=== PATIENT | male | born 1950 | race Caucasian/White ===

== ENCOUNTER 2022-10-21 06:20 | Day surgery (SDC) | payer MEDICARE, BC ==
[~2022-10-21] VITALS: Ht 172.7 cm; Wt 75.0 kg
[~2022-10-21 06:20] MED LIST: LATANOPROST2.5 ML OPTH; LEVOTHYROXINE50 MCG PO; LOVENOX40 MG SUB-Q; LOVENOX40 MG/0.4 SUB-Q; LOVENOX80 MG SUB-Q; MAPAP325 MG PO; OXYCODON-ACETA1 EAC2 PO; PERCOCET 7.5-31 EACH PO; SILDENAFIL20 MG PO; WARFARIN SODIUM5 MG PO
--- NOTE | 2022-10-21 08:59 | NUR ---
10/21/22 0859 Alva Gu 0806 PT ARRIVED IN PACU SLEEPY WITH NO C/O'S. ABD SOFT. 0820 DR AT BEDSIDE. ALL QUESTIONS ANSWERED. 0830 SITTING AT BEDSIDE SIPPING ON WATER. DC INSTRUCTIONS GIVEN. 0846 LEFT VIA W/C.
--- NOTE | 2022-10-21 09:40 | NUR ---
PT ALERT,ORIENTED AND SUPPORTED BY HIS MO. PT HAS HAD PREVIOUS SCOPES, ALL QUESTIONS ASKED ANSWERED. MO WILL REMAIN FOR DC-GAVE BLESSING ANSD WILL FOLLOW.
--- NOTE | 2022-10-22 08:57 | OR ---
[facility] [address] [place], [place] [address] Signed DATE OF OPERATION: 10/21/2022 SURGEON: Lauryn Rodrigues MD PREOPERATIVE DIAGNOSIS: History of sigmoid resection for colon cancer in 2011. POSTOPERATIVE DIAGNOSIS: Normal colon to cecum except for mild inflammation of the ileocecal valve. PROCEDURE: Total colonoscopy to cecum with biopsy of ileocecal valve. ANESTHESIA: Intravenous sedation, fentanyl 100 mcg and Versed 4 mg. INDICATIONS: This 72-year-old white man is a patient of Dave Adrian. He underwent sigmoid resection by ga for colon cancer in 2011. He did suffer a postoperative DVT and pulmonary embolism after a few weeks postop and has been anticoagulated with Coumadin since that time. He is on Lovenox therapy as a bridge during the course of surveillance colonoscopy. He currently has no symptoms of bleeding, diarrhea, or constipation. He understands the risk of colonoscopy including but not limited to bleeding, infection, and perforation and wished to proceed. FINDINGS: The prep was excellent. Complete colonoscopy was undertaken to the cecum. There was inflammation of the ileocecal valve, but no sign of malignancy. Biopsy was obtained nevertheless. Remaining colon was normal including the colorectal anastomosis, which was widely patent. DESCRIPTION OF PROCEDURE: The patient was brought to the endoscopy suite and placed in lateral decubitus position given intravenous sedation to the point of slurred speech and nystagmus. Digital rectal examination was normal. An Olympus video colonoscope was passed into the rectum and manipulated throughout the colon ultimately intubating the cecum. The ileocecal valve appeared to have inflammation. Manipulation of it was undertaken and although the inflammation was not associated with neoplastic change, biopsies were obtained. The scope was then Electronically Signed By: LAURYN RODRIGUES MD 10/22/22 0857 PATIENT NAME: EFRAÍN YOUNGER OPERATIVE REPORT DATE OF : 48 REPORT #: [id number] PHYSICIAN: LAURYN RODRIGUES MD PCP: DAVE ADRIAN PAC REPORT IS CONFIDENTIAL AND NOT TO BE RELEASED WITHOUT AUTHORIZATION [facility] [address], [place] [address] Signed withdrawn. Examination throughout showed no other abnormality, specifically no polyps, diverticular formation, colitis, or cancer. The colorectal anastomosis was widely patent. Retroflexed view of the rectum was normal. Scope was removed. The patient was taken to the recovery room in good condition. CONCLUDING DIAGNOSIS: Essentially normal colon. Inflammation of ileocecal valve nonspecific. Biopsy results pending. PLAN: We would recommend repeat colonoscopy in 5 years or sooner if symptoms should occur. He will restart his Coumadin now and complete Lovenox bridge therapy as previously ordered. He will return to the ongoing care of Dave Adrian PA-C. MD REMI Bowen/DAKOTAL /[id number] cc: Dave Adrian PA-C Copies: ~ Electronically Signed By: LAURYN RODRIGUES MD 10/22/22 0857 PATIENT NAME: EFRAÍN YOUNGER OPERATIVE REPORT DATE OF : 48 REPORT #: [id number] PHYSICIAN: LAURYN RODRIGUES MD PCP: DAVE ADRIAN PAC REPORT IS CONFIDENTIAL AND NOT TO BE RELEASED WITHOUT AUTHORIZATION
--- NOTE | 2022-10-22 18:11 | PATH ---
[facility] [address] [place], [place] [address] Signed SPECIMEN(S): A ILEOCECAL VALVE BIOPSY SPECIMEN SOURCE: A. ILEOCECAL VALVE BIOPSY CLINICAL HISTORY: Pre: 2011 low anterior resection. 2014 normal colonoscopy. FINAL PATHOLOGIC DIAGNOSIS: Ileocecal valve, biopsies: - Benign small intestinal mucosa. - Negative for acute inflammation, granulomata, and dysplasia. DF:ricardoc:C2NR MICROSCOPIC EXAMINATION: Histologic sections of all submitted blocks are examined by light microscopy. These findings, together with the gross examination, support the pathologic diagnosis. GROSS DESCRIPTION: The specimen, labeled and designated "Slime, ileocecal valve biopsy," is received in formalin and consists of two zhu, soft tissue fragments ranging from 0.1 to 0.2 cm. Entirely submitted in (A1). VB (under the direct supervision of a pathologist) The Gross Description was prepared using a voice recognition system. The report was reviewed for accuracy; however, sound-alike word errors, addition and/or deletions may occur. If there is any question about this report, please contact Client Services. PERFORMING LABORATORY: The technical component was performed by [email or web address], [address] [place] [id number] (CLIA# [id number]). The professional interpretation was performed by [facility], [facility], [address] [place] [id number] (CLIA#: [id number]). Diagnostician: Anjum Michaud DO Pathologist Electronically Signed 10/22/2022 PATIENT NAME: EFRAÍN YOUNGER PATHOLOGY DATE OF : 48 REPORT #: [id number] PHYSICIAN: KAYLYN CARRILLO PCP: DAVE ADRIAN PAC REPORT IS CONFIDENTIAL AND NOT TO BE RELEASED WITHOUT AUTHORIZATION [address] [address] Signed Copies: ~ PATIENT NAME: EFRAÍN YOUNGER PATHOLOGY DATE OF : 48 REPORT #: [id number] PHYSICIAN: KAYLYN CARRILLO PCP: DAVE ADRIAN PAC REPORT IS CONFIDENTIAL AND NOT TO BE RELEASED WITHOUT AUTHORIZATION
== END 2022-10-21 08:46 | disposition home or self-care (01) ==
LOC: OPS 06:20 → DS 06:20 → OPS 07:30 → DS 08:30 → OPS 08:46
PROVIDERS: ATTEND Surgery
PROC: 0DBC8ZX Excision of Ileocecal Valve, Via Natural or Artificial Opening Endoscopic, Diagnostic (ICD-10-PCS; principal; 2022-10-21 07:30)
DX: Z12.11 Encounter for screening for malignant neoplasm of colon (principal); D68.59 Other primary thrombophilia; Z85.038 Personal history of other malignant neoplasm of large intestine; Z86.711 Personal history of pulmonary embolism; Z79.01 Long term (current) use of anticoagulants; Z88.8 Allergy status to other drugs, medicaments and biological substances; Z79.899 Other long term (current) drug therapy
CPT/HCPCS: 99153; G0500; J2250; J3010; J7121